=== PATIENT | male | born 1975 | race Caucasian/White ===

== ENCOUNTER → 2016-04-24 | Day surgery (SDC) | payer MEDICAID ==
[~2016-04-24] MED LIST: ANDROGEL75 GM EXT; ETODOLAC500 MG PO; FLEXERIL PO; LISINOPRIL-HCTZ1 T20 PO; LORTAB 7.5-5001 TAB PO; NAPROXEN PO; NYSTATIN-TRIAMC15 G1 TP; PERCOCET10 PO; VITAL-D RX TABL1 TAB PO; VITAMIN D2000 UNIT PO; VOLTAREN75 MG PO; XANAX XR PO; ZOLOFT PO; ZYRTEC-D T1 TAB.SR . PO
--- NOTE | ~2016-04-24 | CT2 ---
[facility] A Service of [facility] RADIOLOGY TEXT RESULTS PATIENT: PENG SHARMA LOCATION: [facility] : 71 UNIT #: [id number] AGE: [address]: GUANAKITO WEBER APRN SEX: M ORDER DR: [id number] [facility] [address] [place], [place] [address] [id number] E MR#: [id number] Acc #: [id number] NAME: PENG SHARMA. : 1975 SEX: M STUDY DATE/TIME: 04/24/2016 0257 UNIT: [facility] ROOM: STUDY DESCRIPTION: CT Abd and Pelv W Cont Attending Physician: Guanakito Weber Aprn Ordering Physician: Guanakito Weber Aprn Primary Care Physician: David Hinds M.D. MEDICAL IMAGING REPORT This report is preliminary unless electronic signature is present EXAM CT abdomen and pelvis, 04/24 at 0257 INDICATION Right lower quadrant pain that started at 6 o'clock last night. Nausea. TECHNIQUE Axial images were obtained through the abdomen and pelvis following IV contrast administration. Multiplanar reformats were obtained. This CT exam was performed with one or more of the following radiation dose reduction techniques: automatic exposure control, adjustment of mA and/or kV according to patient size, and iterative reconstruction. COMPARISON STUDIES No comparison. FINDINGS ABDOMEN: Lung bases are clear. Gallbladder is normal. There is diffuse hepatic steatosis. Solid organs are otherwise normal. No free fluid. No adenopathy. Unopacified GI tract is normal. PELVIS: The appendix is abnormally dilated and fluid filled. It measures about 11 mm in diameter. These findings are compatible with acute appendicitis. There is some minimal adjacent fat stranding. There is nothing to suggest a rupture. There is no abscess. The rest of the GI tract is normal. Urinary bladder is normal. No free fluid is seen. IMPRESSION 1. Acute appendicitis with some adjacent inflammation. No evidence of rupture. No abscess or free fluid. 2. The remainder of the abdomen and pelvis CT is normal except for fatty infiltration of the liver. [facility] A Service of [facility] RADIOLOGY TEXT RESULTS PATIENT: PENG SHARMA LOCATION: [facility] : 71 UNIT #: [id number] AGE: [address]: GUANAKITO WEBER APRN SEX: M ORDER DR: Dictated by... Arun Morillo Jr., M.D. THIS IS AN ELECTRONICALLY VERIFIED REPORT Arun Morillo Jr., M.D. at 04/24/2016 9:17 PM BRENNAN/glen TD: 04/24/2016 10:23 JOB #: [id number] MEDICAL IMAGING REPORT COPY
--- NOTE | ~2016-04-24 | OR ---
Unit #: [id number] #: [id number] Patient: PENG SHARMA [id number] [address] [address] [id number] E MR#: [id number] NAME: PENG SHARMA ROOM: Date of Procedure: 04/24/2016 Admission Date: 04/24/2016 Surgeon: Gerson Lang M.D. : 1975 Attending Physician: Guanakito Weber Aprn Primary Care Physician: David Hinds M.D. OPERATIVE REPORT PREOPERATIVE DIAGNOSIS Appendicitis. POSTOPERATIVE DIAGNOSIS Appendicitis. PROCEDURE PERFORMED Laparoscopic appendectomy ASSISTANT Efra Scott M.D. ANESTHESIA General endotracheal anesthesia. ESTIMATED BLOOD LOSS Minimal. IV FLUIDS 500 crystalloid. COMPLICATIONS None. INDICATIONS FOR PROCEDURE The patient is a 40-year-old gentleman, who presents with acute appendicitis. DESCRIPTION OF PROCEDURE The patient was taken to the operating theater and placed in supine position. General anesthesia was induced. The abdomen was prepped and draped. A 5-mm Optiview was then placed in the left side wall. The abdomen was insufflated to 15 mmHg with CO2. The patient was placed in Trendelenburg. I placed a right lower quadrant 10 mm and left lower quadrant 5 mm port. General inspection of the abdomen revealed acute nonperforated appendicitis. The appendix was mobilized. CHRIS stapler was then fired across the base of the appendix inclusive of the mesoappendix. Hemostasis was adequate. I removed the appendix and I placed an Endobag via the 10 mm port. I saw no other abnormalities. The ports were removed. The fascia was closed with 0 Vicryl and skin with 4-0 Vicryl. The patient tolerated the procedure well and sent to recovery room in good condition. Unit #: [id number] #: [id number] Patient: PENG SHARMA Dictated by... Stella Shepard/coral TD: 04/25/2016 02:45 JOB #: [id number] OPERATIVE REPORT X Gerson Lang MD PROCEDURE OPERATIVE NOTE
--- NOTE | ~2016-04-24 | CO ---
Unit #: [id number] #: [id number] Patient: PENG SHARMA [id number] [address] [place], [place] [address] [id number] E MR#: [id number] NAME: PENG SHARMA ROOM: Age: 40 Sex: M Admission Date: 04/24/2016 : 1975 Attending Physician: Guanakito Weber Aprn Primary Care Physician: David Hinds M.D. Consultation Date: 04/24/2016 CONSULTATION REPORT BRIEF HISTORY The patient is a 40-year-old gentleman, who presents with acute onset less than 12 hours of right lower quadrant abdominal pain. It started periumbilical, now right lower quadrant. Some nausea. No vomiting. No diarrhea. No fevers. No trauma. No history of similar type pain. PAST MEDICAL HISTORY Open ventral hernia repair and history of back pain. MEDICATIONS Flexeril, Percocet, and lisinopril. SOCIAL HISTORY No smoking. No alcohol. FAMILY HISTORY Negative for GI malignancy. REVIEW OF SYSTEMS No cardiopulmonary complaints at this time. Else, 10 systems reviewed and negative. PHYSICAL EXAMINATION GENERAL: He is awake, alert, appropriate. VITAL SIGNS: Currently afebrile. HEENT: Unremarkable. NECK: Supple. No JVD. Trachea midline. LUNGS: Clear to auscultation. Bilateral breath sounds symmetric. CARDIOVASCULAR: Regular rate and rhythm. ABDOMEN: Soft. It is tender in the right lower quadrant with point tenderness at McBurney point. No rebound. No masses. No hernias. EXTREMITIES: No clubbing, cyanosis, or edema. DIAGNOSTIC STUDIES LABORATORY RESULTS: Show white count of 17.9. Glucose is 128. IMAGING STUDIES: CT scan shows pericecal inflammation. No abscess. No rupture. ASSESSMENT Appendicitis. PLAN Recommend laparoscopic appendectomy. Discussed in detail. We will Unit #: [id number] #: [id number] Patient: PENG SHARMA proceed as indicated. Dictated by... Gerson Lang M.D. BYRON/ryan TD: 04/25/2016 01:01 JOB #: [id number] CONSULTATION REPORT X Gerson Lang MD CONSULTATION REPORT
[2016-04-24 02:12] LABS: BASOPHIL# 0.1 X10e3 (0-0.3); BASOPHIL% 0.6 % (0-2.5); EOSINOPHIL% 0.1 % (0.0-7.0); HEMATOCRIT 47.5 % (38.0-50.0); HEMOGLOBIN 15.8 gm/dL (13.0-16.0); LYMPHOCYTE% 11.3 % (17.0-45.0); MEAN CELL VOLUME 85.5 FL (83-96); MEAN CORPUSCULAR HEMOGLOBIN 28.4 PG (28-34); MEAN CORPUSCULAR HGB CONC 33.2 g/dL (30-36); MEAN PLATELET VOLUME 7.2 FL (6.5-11.5); MONOCYTE# 0.9 X10e3 (0-1.0); MONOCYTE% 4.9 % (3.0-12.0); NEUTROPHIL# 14.9 X10e3 (1.5-7.1); NEUTROPHIL% 83.1 % (40-75); PLATELET COUNT 389 X10e3 (140-420); RED BLOOD COUNT 5.56 X10e (3.90-5.60); RED CELL DISTRIBUTION WIDTH 13.1 % (11.0-15.5); WHITE BLOOD COUNT 17.9 X10e3 (4.0-10.5)
[2016-04-24 02:14] LABS: DIFF IND YES
[2016-04-24 02:26] LABS: URINE APPEARANCE CLEAR; URINE BILIRUBIN NEG (NEG); URINE BLOOD NEG (NEG); URINE COLOR YELLOW; URINE GLUCOSE NEG (NEG); URINE KETONE NEG (NEG); URINE LEUKOCYTE ESTERASE NEG (NEG); URINE NITRATE NEG (NEG); URINE PROTEIN NEG (NEG); URINE SPECIFIC GRAVITY 1.026 (1.003-1.035); URINE UROBILINOGEN 0.2 MG/DL (NEG)
[2016-04-24 02:28] LABS: PLATELET ESTIMATE NORMAL (NORMAL); RBC NORMAL YES
[2016-04-24 02:29] LABS: CULTURE INDICATED? NO
[2016-04-24 02:36] LABS: ALBUMIN SERUM 4.7 g/dL (3.5-5.0); ALKALINE PHOSPHATASE 81 U/L (32-92); ALT (SGPT) 43 U/L (10-40); AMYLASE 14 U/L (0-46); AST (SGOT) 29 U/L (10-42); BILIRUBIN, DIRECT 0.1 mg/dL (0.0-0.2); BILIRUBIN,INDIRECT 0.7 mg/dL (0.0-0.9); BILIRUBIN,TOTAL 0.8 mg/dL (0.2-2.0); BLOOD UREA NITROGEN 13 mg/dL (9-23); BUN/CREATININE RATIO 21.66; CALCIUM SERUM 9.3 mg/dL (8.4-10.2); CARBON DIOXIDE 29 mmol/L (22-31); CHLORIDE 90 mmol/L (100-111); CREATININE SERUM 0.6 mg/dL (0.6-1.4); GLOM FILT RATE Estimated ABOVE60 mL/min (>60); GLUCOSE FASTING 128 mg/dL (70-110); LIPASE 19 U/L (22-51); POTASSIUM 3.9 mmol/L (3.5-5.1); PROTEIN TOTAL SERUM 8.8 g/dL (6.0-8.3); SODIUM 129 mmol/L (135-145)
== END | disposition home or self-care (01) ==
LOC: CED 02:15 → CSUR 07:48
PROVIDERS: Nurse Practitioner Family
DX: K35.80 Unspecified acute appendicitis (principal); I10 Essential (primary) hypertension; Z79.899 Other long term (current) drug therapy
CPT/HCPCS: 36415; 74177; 80048; 80076; 81003; 82150; 83690; 85025; 88304; 96361; 96374; 96375; 99285; J0330; J1170; J1644; J1885; J2250; J2270; J2405; J2543; J2550; J2710; J3010; Q9967